=== PATIENT | female | born 1930 | race Caucasian/White ===

== ENCOUNTER → 2016-06-20 11:26 | Outpatient (CLI) | payer MEDICARE, OTHER ==
[2016-06-20 12:34] LABS: APPEARANCE CLEAR (CLEAR); BILIRUBIN NEGATIVE (NEGATIVE); COLOR STRAW (YELLOW); GLUCOSE NEGATIVE (NEGATIVE); KETONE NEGATIVE (NEGATIVE); LEUKOCYTE ESTERASE NEGATIVE (NEGATIVE); NITRITE NEGATIVE (NEGATIVE); PROTEIN NEGATIVE (NEGATIVE); UROBILINOGEN NORMAL (NORMAL)
== END | disposition home or self-care (01) ==
LOC: D.LABREF 11:26
PROVIDERS: Student in an Organized Health Care Education/Training Program
DX: N39.0 Urinary tract infection, site not specified (principal)

== ENCOUNTER → 2017-01-02 18:17 | Outpatient (CLI) | payer MEDICARE, OTHER ==
[2017-01-02 18:54] LABS: APPEARANCE CLEAR (CLEAR); COLOR YELLOW (YELLOW); LEUKOCYTE ESTERASE 2+ (NEGATIVE)
[2017-01-02 18:55] LABS: BILIRUBIN NEGATIVE (NEGATIVE); GLUCOSE NEGATIVE (NEGATIVE); KETONE NEGATIVE (NEGATIVE); NITRITE NEGATIVE (NEGATIVE); PROTEIN NEGATIVE (NEGATIVE); UROBILINOGEN NORMAL (NORMAL)
[2017-01-02 18:58] LABS: BACTERIA FEW /hpf (NONE SEEN); EPITHELIAL CELLS 0-5 /hpf (0-5); WHITE CELLS - URINE 0-5 /hpf (0-5)
== END | disposition home or self-care (01) ==
LOC: D.LABREF 18:17
PROVIDERS: Urology
DX: N39.0 Urinary tract infection, site not specified (principal)

== ENCOUNTER 2017-02-20 10:34 | Day surgery (SDC) | payer MEDICARE, OTHER ==
[~2017-02-20 10:34] MED LIST: CALCIUM 500 + D1 TAB PO; CO Q-10100 MG PO; LYSINE1000 MG PO; OMEPRAZOLE40 MG PO; PROBIOTIC1 EAC1 PO; RED YEAST RICE600 MG PO
[2017-02-20 15:04] VITALS: BP 148/72; BMI 22.3
[2017-02-20 16:16] LABS: HEMATOCRIT 35.6 % (36.0-48.0); HEMOGLOBIN 11.6 g/dL (12-16); MCH 28.2 pg (26.0-34.0); MCHC 32.6 g/dL (31.0-37.0); MCV 86.6 fL (80.0-100.0); MEAN PLATELET VOLUME 10.2 fL (7.4-10.4); RBC 4.11 10x6/uL (4.00-5.40); RDW 14.5 % (11.5-14.5); WBC 3.9 10x3/uL (4.8-10.8)
--- NOTE | 2017-02-20 18:50 | NUR ---
RIGHT FOREARM PIV DC'D WITH TIP INTACT. PATIENT DRESSING IN PERSONAL CLOTHING WITH SPOUSE STANDING BY
--- NOTE | 2017-02-20 19:00 | NUR ---
DISCHARGE INSTRUCTIONS REVIEWED WITH PATIENT AND SPOUSE. PATIENT DISCHARGED HOME VIA WHEELCHAIR TO PRIVATE VEHICLE WITH SPOUSE
--- NOTE | 2017-02-20 23:28 | OP ---
PATIENT NAME: DALI FRAZIER MEDICAL RECORD: [id number] :34 LOCATION:[facility] ADMISSION DATE: SURGEON: RONAL YING MD DATE OF OPERATION: 02/20/2017 SURGEON: Ronal Ying MD. ANESTHESIA: MAC by Brayden Rodríguez CRNA. PREOPERATIVE DIAGNOSIS: Interstitial cystitis. PROCEDURES: Cystoscopy, intravesical Rimso instillation 50 mL. FINDINGS: Diffusely inflamed bladder with glomerulations, single ureteral orifices bilaterally, no bladder tumors. CLINICAL HISTORY: This is an 86-year-old female, who has a longstanding history of urinary tract infection-like symptoms. She has been on a prolonged course of antibiotics. The urine has occasionally grown positive organism such as E. coli and from what I can see in her record, she has had about 1 culture positive UTI a year. She does not have any predisposing factors besides her age. She does not have any diabetes, she is not sexually active, she wipes from front to back and she did try a vaginal estrogen cream in the past. She comes now to have cystoscopy to examine her bladder for possible interstitial cystitis. Her latest urine cultures have shown no growth. She is not allergic to any medications. We gave her IV Ancef 1 gram IV superintendent distribution to the OR. DESCRIPTION OF PROCEDURE: The patient was given IV sedation. She was then placed in dorsal lithotomy position and prepped and draped. A 17-Turkmen cystoscope with 30-degree lens was used for visualization. Going into the bladder, there was single ureteral orifices on each side. Diffuse bladder inflammation was seen. No bladder tumors were seen. The bladder was then emptied completely through the scope sheath and the scope was removed. A 14-Turkmen red rubber catheter was introduced into the bladder and the Rimso solution was injected into the bladder using a 60 cc Radhames syringe. The catheter was then removed, leaving the medication in the bladder. She will hold the medication in for about 15 minutes and then void it out. We will see her in the office next week to have the second treatment of Rimso given in the office. 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
== END 2017-02-20 19:05 | disposition home or self-care (01) ==
LOC: D.OPS 10:34 → D.PAN 13:50 → D.OPS 13:50
PROVIDERS: Anesthesiology
DX: N30.10 Interstitial cystitis (chronic) without hematuria (principal); K21.9 Gastro-esophageal reflux disease without esophagitis; Z01.812 Encounter for preprocedural laboratory examination